=== PATIENT | female | born 1995 | race Caucasian/White ===

== ENCOUNTER → 2018-04-10 | Outpatient (REF) ==
[~2018-04-10] MED LIST: FLONASE NASAL S16 GM NS
[2018-04-10 20:44] LABS: THYROID STIMULATING HORMONE 1.77 uIU/mL (0.465-4.680)
== END ==
LOC: ZLAB.WCH 19:21
PROVIDERS: Physician Assistant
DX: Z01.89 Encounter for other specified special examinations (principal)